=== PATIENT | female | born 1995 | race Caucasian/White ===

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

== ENCOUNTER 2017-01-24 22:08 | Emergency (ER) ==
[2017-01-24 22:14] VITALS: BP 136/73; TEMP 98.4; BMI 18.1
[2017-01-24] MEDS ORDERED: TORADOL IM STA (22:24)
--- NOTE | 2017-01-24 22:27 | ED.PDOC ---
General ED Provider: Dr. RUBY GARCIA Chief Complaint: Abdominal Pain Stated Complaint: Been hurting in the left flank area, has h/o kidney stones in the past, never hurt like this before. Time Seen by Physician: 22:24 Mode of Arrival: Walk-In Information Source: Patient, Family Primary Care Provider: JONELLE JUNIOR Nursing and Triage Documentation Reviewed and Agree: Yes GI Complaint Exam - Abdominal Pain Complaint/Exam Onset: Gradual Symptoms Are: Still present Timing: Constant Initial Severity: Moderate Current Severity: Severe Location of Pain: LLQ Radiates To: Reports: Flank Character: Reports: Dull, Aching Aggravating: Reports: Movement, Deep breaths Alleviating: Reports: None Associated Signs and Symptoms: Reports: Dysuria, Urinary frequency. Denies: Diaphoresis, Fever, Cough, Chest pain, Dizziness, Back pain, Constipation, Blood in stool, Decreased urine output, Decreased appetite, Vaginal bleeding, Vaginal discharge, Nausea, Vomiting, Diarrhea, Sore throat, Decreased activity Related History: Reports: Similar episode Ectopic Risk Factors: Reports: None Ovarian Torsion Risk Factors: Reports: None Surgical Obstruction Risk Factors: Reports: None Related Surgical History: Reports: None Abdominal Findings: Absent: Pulsatile mass, Abdominal distention, Unequal femoral pulses Differential Diagnoses: Renal Colic, Ovarian Cyst Review of Systems - Review Of Systems Constitutional: Reports: No symptoms Eyes: Reports: No symptoms Ears, Nose, Mouth, Throat: Reports: No symptoms Respiratory: Reports: No symptoms Cardiac: Reports: No symptoms GI: Reports: Abdominal pain : Reports: No symptoms Musculoskeletal: Reports: No symptoms Skin: Reports: No symptoms Neurological: Reports: No symptoms Endocrine: Reports: No symptoms Hematologic/Lymphatic: Reports: No symptoms All Other Systems: Reviewed and Negative Past Medical History - Past Medical History Previously Healthy: Yes Endocrine: Reports: None Cardiovascular: Reports: None Respiratory: Reports: None Hematological: Reports: None Gastrointestinal: Reports: None Genitourinary: Reports: None Neuro/Psych: Reports: None Musculoskeletal: Reports: None Cancer: Reports: None Last Menstrual Period: 2 weeks ago - Surgical History General Surgical History: Reports: None, Other - Family History Family History: Reports: Unknown - Social History Smoking Status: Never smoker Hx Substance Use: No Alcohol Screening: None - Immunizations Tetanus Shot up to Date: Yes Physical Exam - Physical Exam Appearance: Ill-appearing, Thin Eyes: JANINE, EOMI, Conjunctiva clear ENT: Ears normal, Nose normal, Oropharynx normal Respiratory: Airway patent, Breath sounds clear, Breath sounds equal, Respirations nonlabored Cardiovascular: RRR, Pulses normal, No rub, No murmur GI/: Tender Musculoskeletal: Normal strength, ROM intact, No edema, No calf tenderness Skin: Warm, Dry, Normal color Neurological: Sensation intact, Motor intact, Reflexes intact, Cranial nerves intact, Alert, Oriented Psychiatric: Affect appropriate, Mood appropriate Interpretation - Radiology Interpretation Radiology Interpretation By: Radiologist Radiology Results: Positive Exam Interpreted: CT Scan Critical Care Note - Critical Care Note Total Time (mins): 0 Course - Course Orders, Labs, Meds: Lab Review 01/24/17 01/24/17 22:26 22:28 Urine Color Yellow Urine Clarity Cloudy Urine pH 6.0 Ur Specific [place] 1.020 Urine Protein Trace Urine Glucose (UA) Negative Urine Ketones 1+ Urine Blood 3+ Urine Nitrite Negative Urine Bilirubin Negative Urine Urobilinogen 0.2 Ur Leukocyte Esterase Negative Urine Microscopic RBC 50-100 Ur Squamous Epith Cells 0-2 Urine Test Negative Orders Category Date Time Status URINALYSIS C & S IF INDICATED Stat LAB 01/24/17 22:28 Completed URINE Stat LAB 01/24/17 22:26 Completed Ketorolac Tromethamine [Toradol] MEDS 01/24/17 22:24 Discontinued 60 mg IM ONCE STA CT ABDOMEN/PELVIS WO CONTRAST Stat RADS 01/24/17 22:23 Completed Medications Discontinued Medications Generic Name Dose Route Start Last Admin Trade Name Freq PRN Reason Stop Dose Admin Ketorolac Tromethamine 60 mg 01/24/17 22:24 01/24/17 22:35 Toradol IM 01/24/17 22:25 60 mg ONCE STA Administration Vital Signs: Temp Pulse Resp BP Pulse Ox 01/24/17 22:08 98.4 F 119 H 22 136/73 97 Departure - Departure Time of Disposition: 23:28 Disposition: HOME SELF-CARE Discharge Problem: Renal colic on left side Instructions: Renal Colic (ED) Condition: Stable Pt referred to PMD for follow-up: Yes Additional Instructions: INCREASE HYDRATION F/U WITH [facility] IN 1-2 DAYS Prescriptions: Hydrocodone/Acetaminophen [[place] 5-325 Tablet] 1 tab PO TID PRN #12 tablet PRN Reason: PAIN Tamsulosin HCl [Flomax] 0.4 mg PO DAILY #10 cap.er.24h Allergies/Adverse Reactions: Allergies No Known Allergies Allergy (Unverified 01/24/17 22:14) Home Medications: Ambulatory Orders Doxycycline Monohydrate 100 mg PO BID 06/13/16 Hydrocodone/Acetaminophen [[place] 5-325 Tablet] 1 tab PO TID PRN #12 tablet 01/24 Tamsulosin HCl [Flomax] 0.4 mg PO DAILY #10 cap.er.24h 01/24/17 Disposition Discussed With: Patient, Family
[2017-01-24 22:31] LABS: BILIRUBIN,URINE Negative (NEGATIVE); KETONES,URINE 1+ (NEGATIVE); LEUKOCYTE ESTERASE ,URINE Negative (NEGATIVE); NITRITE,URINE Negative (NEGATIVE); PROTEIN,URINE Trace (NEGATIVE); URINE, BLOOD 3+ (NEGATIVE)
[2017-01-24 22:37] LABS: URINE PREGNANCY INTERNAL QC INTERNAL QC VALID
[2017-01-24 22:37] LABS: ADD URINE MICROSCOPIC YES
--- NOTE | 2017-01-24 23:14 | CT ---
EXAM: CT scan abdomen pelvis without contrast HISTORY: Flank pain COMPARISON: None. FINDINGS: . Contiguous axial images were obtained from lung bases to the symphysis pubis without co ntrast utilizing 3-mm collimation. Sagittal and coronal reconstructions were imaged and reviewed.. T he visualized lung bases are clear. The gallbladder is fluid filled without cholelithiasis. The shital er, pancreas, spleen and adrenal glands have normal unenhanced CT appearance. There are several punct ate nonobstructive calculi within the right kidney. There is a punctate calculus within the lower po le left kidney. There is mild left-sided hydronephrosis and hydroureter secondary to a 2 mm distal l eft ureteral calculus. No free fluid. Bone windows reveals no evidence of lytic or blastic lesions. IMPRESSION: Nonobstructive bilateral nephrolithiasis. Mild left-sided hydronephrosis and hydroureter secondary to a 2 mm distal left ureteral calculus.
[2017-01-24] MEDS ORDERED: FLOMAX PO STA (23:27)
[2017-01-24] MEDS ORDERED: NORCO 5-325 PO STA (23:43)
== END 2017-01-25 00:05 | disposition home or self-care (01) ==
LOC: ED 22:08
DX: N23 Unspecified renal colic (principal); Z87.442 Personal history of urinary calculi
CPT/HCPCS: 81001; 81025; 96372; 99283

== ENCOUNTER 2017-04-10 06:28 | Emergency (ER) ==
[2017-04-10 06:28] VITALS: BMI 18.1
[2017-04-10 06:32] VITALS: BP 131/84; TEMP 97.6
[2017-04-10] MEDS ORDERED: TORADOL IVP STA (06:41)
[2017-04-10] MEDS ORDERED: SODIUM CHLORIDE 1,000 ML IV STA (06:41)
[2017-04-10] MEDS ORDERED: MORPHINE 2 MG/ML SYRINGE IVP STA (06:41)
[2017-04-10] MEDS ORDERED: ZOFRAN 4 MG/2 ML IVP STA (06:41)
--- NOTE | 2017-04-10 06:47 | ED.PDOC ---
General Stated Complaint: i have a kidney stone Time Seen by Physician: 06:35 Mode of Arrival: Walk-In Information Source: Patient Exam Limitations: No limitations Nursing and Triage Documentation Reviewed and Agree: Yes <OGVANCESOFIYA - Last Filed: 04/10/17 06:44> <JANA ROQUE - Last Filed: 04/10/17 07:53> ED Provider: Dr. JANA ROQUE Chief Complaint: Kidney Stone Primary Care Provider: JONELLE JUNIOR Complaint Exam - Complaint/Exam Patient Complains of: Reports: Pain Symptoms Are: Still present Timing: Constant Initial Severity: Mild Current Severity: Moderate Location of Pain: Reports: Left, Flank Character: Reports: Sharp, Colicky, Dull Aggravating: Reports: None Alleviating: Reports: None Associated Signs and Symptoms: Reports: Back pain, Nausea, Vomiting. Denies: Diaphoresis, Fever, Hematuria, Dysuria, Constipation, Blood in stool, Rectal pain, Appetite change Ovarian Torsion Risk Factors: Reports: Reproductive age Surgical Obstruction Risk Factors: Reports: None RH Status: Unknown Abdominal Findings: Present: None Differential Diagnoses: Ovarian Cyst, Renal Colic, Ureteral Stone <RAOULKAMILASOFIYA Last Filed: 04/10/17 06:44> Review of Systems - Review Of Systems Constitutional: Reports: No symptoms Eyes: Reports: No symptoms Ears, Nose, Mouth, Throat: Reports: No symptoms Respiratory: Reports: No symptoms Cardiac: Reports: No symptoms GI: Reports: Nausea : Reports: Flank pain, Pain Musculoskeletal: Reports: No symptoms Skin: Reports: No symptoms Neurological: Reports: No symptoms Endocrine: Reports: No symptoms Hematologic/Lymphatic: Reports: No symptoms All Other Systems: Reviewed and Negative <RAOULKAMILASOFIYA Last Filed: 04/10/17 06:44> Past Medical History - Past Medical History Previously Healthy: Yes Endocrine: Reports: None Cardiovascular: Reports: None Respiratory: Reports: None Hematological: Reports: None Gastrointestinal: Reports: None Genitourinary: Reports: None Neuro/Psych: Reports: None Musculoskeletal: Reports: None Cancer: Reports: None Last Menstrual Period: 3 DAYS AGO - Surgical History General Surgical History: Reports: None, Other - Family History Family History: Reports: Unknown - Social History Smoking Status: Never smoker Hx Substance Use: No Alcohol Screening: None Lives: With family - Immunizations Tetanus Shot up to Date: Yes <SOFIYA VERGARA - Last Filed: 04/10/17 06:44> Physical Exam - Physical Exam Appearance: Well-appearing, No pain distress, Well-nourished Pain Distress: Moderate Eyes: JANINE, EOMI, Conjunctiva clear ENT: Ears normal, Nose normal, Oropharynx normal Neck: Supple Respiratory: Airway patent, Breath sounds clear, Breath sounds equal, Respirations nonlabored Cardiovascular: RRR, Pulses normal, No rub, No murmur GI/: Soft, Nontender, No masses, Bowel sounds normal, No Organomegaly Musculoskeletal: Normal strength, ROM intact, No edema, No calf tenderness Skin: Warm, Dry, Normal color Neurological: Sensation intact, Motor intact, Reflexes intact, Cranial nerves intact, Alert, Oriented Psychiatric: Affect appropriate, Mood appropriate <RAOULKAMILASOFIYA - Last Filed: 04/10/17 06:44> Re-Evaluation - Re-Evaluation Time of Re-Evaluation: 08:00 (STONE DISCUSSED CT REPORT DISCUSSED ) Status: Improved Vital Signs Stable: Yes Pain Level: 0 Appearance: NAD Lungs: Clear Skin: Warm and Dry Neuro: Alert and Oriented X3 CV: RRR <JANA ROQUE - Last Filed: 04/10/17 07:53> Physician Notification - Case Discussed Physician Notified: dr roque--7 am <URSULASOFIYA - Last Filed: 04/10/17 06:44> Critical Care Note - Critical Care Note Total Time (mins): 0 <JANA ROQUE - Last Filed: 04/10/17 07:53> Course - Course Hematology/Chemistry: 04/10/17 06:55 04/10/17 06:55 <JNAA ROQUE - Last Filed: 04/10/17 07:53> - Course Orders, Labs, Meds: Lab Review 04/10/17 04/10/17 04/10/17 06:40 06:40 06:55 WBC 6.22 RBC 4.06 L Hgb 12.7 Hct 36.1 L MCV 88.9 MCH 31.3 H MCHC 35.2 RDW Coeff of Pauline 13.2 Plt Count 242 Immature Gran % (Auto) 0.2 Neut % (Auto) 41.7 Lymph % (Auto) 51.0 H [place] % (Auto) 6.1 Eos % (Auto) 0.5 Baso % (Auto) 0.5 Immature Gran # (Auto) 0.0 Neut # 2.6 Lymph # 3.2 [place] # 0.4 Eos # 0.0 Baso # 0.0 Sodium Potassium Chloride Carbon Dioxide Anion Gap BUN Creatinine Estimated GFR (MDRD) BUN/Creatinine Ratio Glucose Calcium Total Bilirubin AST ALT Alkaline Phosphatase Total Protein Albumin Globulin Albumin/Globulin Ratio Amylase Lipase Urine Color Yellow Urine Clarity Clear Urine pH 5.5 Ur Specific [place] 1.025 Urine Protein 1+ Urine Glucose (UA) Negative Urine Ketones Negative Urine Blood 2+ Urine Nitrite Negative Urine Bilirubin Negative Urine Urobilinogen 0.2 Ur Leukocyte Esterase Negative Urine Microscopic RBC 10-20 Urine Microscopic WBC 2-5 Ur Squamous Epith Cells Not present Urine Bacteria Trace Urine Mucus 1+ Urine Test Negative 04/10/17 06:55 WBC RBC Hgb Hct MCV MCH MCHC RDW Coeff of Pauline Plt Count Immature Gran % (Auto) Neut % (Auto) Lymph % (Auto) [place] % (Auto) Eos % (Auto) Baso % (Auto) Immature Gran # (Auto) Neut # Lymph # [place] # Eos # Baso # Sodium 142 Potassium 3.4 L Chloride 109 H Carbon Dioxide 21 Anion Gap 15.4 BUN 10 Creatinine 0.69 Estimated GFR (MDRD) 110.00 BUN/Creatinine Ratio 14.49 Glucose 109 Calcium 9.2 Total Bilirubin 0.56 L AST 17 ALT 12 Alkaline Phosphatase 49 Total Protein 6.8 Albumin 4.0 Globulin 2.8 Albumin/Globulin Ratio 1.43 Amylase 53 Lipase 18 Urine Color Urine Clarity Urine pH Ur Specific [place] Urine Protein Urine Glucose (UA) Urine Ketones Urine Blood Urine Nitrite Urine Bilirubin Urine Urobilinogen Ur Leukocyte Esterase Urine Microscopic RBC Urine Microscopic WBC Ur Squamous Epith Cells Urine Bacteria Urine Mucus Urine Test Orders Category Date Time Status ED IV/MEDIPORT/POWERPORT .ONCE EMERGENCY 04/10/17 06:41 Active AMYLASE Stat LAB 04/10/17 06:55 Completed CBC W/ AUTO DIFF Stat LAB 04/10/17 06:55 Completed COMPREHENSIVE METABOLIC PANEL Stat LAB 04/10/17 06:55 Completed LIPASE Stat LAB 04/10/17 06:55 Completed URINALYSIS C & S IF INDICATED Stat LAB 04/10/17 06:40 Completed URINE Stat LAB 04/10/17 06:40 Completed 0.9 % Sodium Chloride [Saline Flush] MEDS 04/10/17 06:41 Active 1 syr IVF PRN PRN Ketorolac Tromethamine [Toradol] MEDS 04/10/17 06:41 Discontinued 30 mg IVP ONCE STA Morphine Sulfate [Morphine 2 mg/ml Syringe] MEDS 04/10/17 06:41 Discontinued 2 mg IVP ONCE STA Ondansetron HCl/Pf [Zofran 4 mg/2 ml] MEDS 04/10/17 06:41 Discontinued 4 mg IVP ONCE STA Sodium Chloride 0.9% [Sodium Chloride] 1,000 ml MEDS 04/10/17 06:41 Active IV 100 mls/hr CT ABDOMEN/PELVIS WO CONTRAST Stat RADS 04/10/17 06:41 Completed Medications Generic Name Dose Route Start Last Admin Trade Name Freq PRN Reason Stop Dose Admin Sodium Chloride 1,000 mls @ 100 mls/hr 04/10/17 06:41 04/10/17 06:57 Sodium Chloride IV 04/10/17 16:40 100 mls/hr .Q10H STA Administration Sodium Chloride 1 syr 04/10/17 06:41 04/10/17 06:56 Saline Flush IVF 1 syr PRN PRN Administration To flush IV Discontinued Medications Generic Name Dose Route Start Last Admin Trade Name Freq PRN Reason Stop Dose Admin Ketorolac Tromethamine 30 mg 04/10/17 06:41 04/10/17 06:57 Toradol IVP 04/10/17 06:42 30 mg ONCE STA Administration Morphine Sulfate 2 mg 04/10/17 06:41 04/10/17 06:56 Morphine 2 Mg/Ml Syringe IVP 04/10/17 06:42 2 mg ONCE STA Administration Ondansetron HCl 4 mg 04/10/17 06:41 04/10/17 06:57 Zofran 4 Mg/2 Ml IVP 04/10/17 06:42 4 mg ONCE STA Administration Vital Signs: Temp Pulse Resp BP Pulse Ox 04/10/17 06:30 97.6 F 107 H 22 131/84 99 Departure <SOFIYA VERGARA - Last Filed: 04/10/17 06:44> - Departure Time of Disposition: 07:52 (SURAJ ON 7 AM ) Pt referred to PMD for follow-up: Yes <JANA ROQUE - Last Filed: 04/10/17 07:53> - Departure Disposition: HOME SELF-CARE Discharge Problem: Kidney stone Instructions: Kidney Stones (ED), Renal Colic (ED), Flank Pain (ED) Condition: Good Additional Instructions: Please call your Family Physician as soon as possible to schedule a follow-up appointment. Allergies/Adverse Reactions: Allergies No Known Allergies Allergy (Unverified 01/26/17 14:01) Home Medications: Ambulatory Orders Doxycycline Monohydrate 100 mg PO BID 06/13/16 Norethindrone [Ortho Micronor] 0.35 mg PO DAILY tab-cap 01/26/17
[2017-04-10 06:49] LABS: BILIRUBIN,URINE Negative (NEGATIVE); KETONES,URINE Negative (NEGATIVE); LEUKOCYTE ESTERASE ,URINE Negative (NEGATIVE); NITRITE,URINE Negative (NEGATIVE); PH,URINE 5.5 (5-9); PROTEIN,URINE 1+ (NEGATIVE); URINE, BLOOD 2+ (NEGATIVE)
[2017-04-10 06:51] LABS: URINE PREGNANCY INTERNAL QC INTERNAL QC VALID
[2017-04-10 06:52] LABS: ADD URINE MICROSCOPIC YES
[2017-04-10 06:59] LABS: BACTERIA,URINE TRACE (NOT PRESENT)
[2017-04-10 07:02] LABS: BASOPHILS % (AUTO) 0.5 % (0.0-3.0); EOSINOPHILS % (AUTO) 0.5 % (0.0-7.0); HEMATOCRIT 36.1 % (37.0-47.0); HEMOGLOBIN 12.7 g/dl (12.0-16.0); IMMATURE GRANULOCYTE % (AUTO) 0.2 % (0.0-5.0); LYMPHOCYTES # (AUTO) 3.2 K/uL (0.60-3.4); MEAN CORPUSCULAR HEMOGLOBIN 31.3 pg (27.0-31.0); MEAN CORPUSCULAR HGB CONC 35.2 (31.8-35.4); MEAN CORPUSCULAR VOLUME 88.9 fl (81.0-99.0); MONOCYTES # (AUTO) 0.4 K/uL (0.4-2.0); MONOCYTES % (AUTO) 6.1 (0-10); NEUTROPHILS # (AUTO) 2.6 K/ul (2.0-6.9); NEUTROPHILS % (AUTO) 41.7; PLATELET COUNT 242 10^3/uL (140-440); RED BLOOD COUNT 4.06 10^6/ul (4.20-5.40); WHITE BLOOD COUNT 6.22 K/ul (4.6-10.2)
[2017-04-10 07:21] LABS: ALBUMIN/GLOBULIN RATIO 1.43; ANION GAP 15.4; BILIRUBIN,TOTAL 0.56 mg/dL (0.60-1.40); BUN/CREATININE RATIO 14.49; CALCIUM 9.2 mg/dL (8.2-10.2); CREATININE 0.69 mg/dL (0.60-1.30); POTASSIUM 3.4 mmol/L (3.5-5.10); TOTAL PROTEIN 6.8 g/dL (6.4-8.2)
--- NOTE | 2017-04-10 07:36 | CT ---
EXAM: CT Abdomen without contrast. CT Pelvis without contrast. HISTORY: Right flank pain. COMPARISON: 01/24/2017. TECHNIQUE: Multiple axial images of the abdomen and pelvis were obtained without intravenous contras t. Images were reformatted in the coronal plane. FINDINGS: Please note that evaluation of the abdominal and pelvic structures is limited due to lack of intravenous contrast. The lung bases are clear. No acute osseous abnormality identified. The liver, gallbladder, pancreas, spleen, and adrenal glands demonstrate normal contour. Mild left h ydronephrosis noted with a 0.3 cm obstructing calculus near the left ureteral vesicle junction on axi al image 117. Punctate nonobstructing right renal calculi are present. There is no right hydronephr osis. The bowel is normal in course and caliber without evidence for obstruction or inflammatory process. The appendix is normal. Uterus demonstrates normal contour. Bladder is not well distended. No free fluid or free air identified. IMPRESSION: 1. A 0.3 cm obstructing calculus near the left ureteral vesicle junction causing mild left hydroneph rosis. 2. Right nephrolithiasis.
== END 2017-04-10 09:30 | disposition home or self-care (01) ==
LOC: ED 06:28
DX: N20.0 Calculus of kidney (principal)
CPT/HCPCS: 36415; 80053; 81001; 81025; 82150; 83690; 85025; 96361; 96374; 96375; 99283

== ENCOUNTER 2017-04-11 09:36 | Emergency (ER) ==
[2017-04-11 09:42] VITALS: BP 117/68; TEMP 96.9; BMI 17.4
[2017-04-11] MEDS ORDERED: TORADOL IM STA (09:59)
[2017-04-11] MEDS ORDERED: ZOFRAN 4 MG/2 ML IM STA (09:59)
--- NOTE | 2017-04-11 10:01 | ED.PDOC ---
General ED Provider: Dr. JANA RUELAS Chief Complaint: Abdominal Pain Stated Complaint: left flank pain Time Seen by Physician: 09:45 Mode of Arrival: Walk-In Information Source: Patient Exam Limitations: No limitations Primary Care Provider: JONELLE JUNIOR Nursing and Triage Documentation Reviewed and Agree: Yes (seen with silvia) Review of Systems - Review Of Systems Constitutional: Reports: No symptoms Eyes: Reports: No symptoms Ears, Nose, Mouth, Throat: Reports: No symptoms Respiratory: Reports: No symptoms Cardiac: Reports: No symptoms GI: Reports: No symptoms : Reports: Flank pain Musculoskeletal: Reports: No symptoms Skin: Reports: No symptoms Neurological: Reports: No symptoms Endocrine: Reports: No symptoms Hematologic/Lymphatic: Reports: No symptoms All Other Systems: Reviewed and Negative Past Medical History - Past Medical History Previously Healthy: Yes Endocrine: Reports: None Cardiovascular: Reports: None Respiratory: Reports: None Hematological: Reports: None Gastrointestinal: Reports: None Genitourinary: Reports: None Neuro/Psych: Reports: None Musculoskeletal: Reports: None Cancer: Reports: None Last Menstrual Period: 4 days ago - Surgical History General Surgical History: Reports: None, Other - Family History Family History: Reports: Unknown - Social History Smoking Status: Never smoker Hx Substance Use: No Alcohol Screening: None Physical Exam - Physical Exam Appearance: Well-appearing, No pain distress, Well-nourished Eyes: JANINE, EOMI, Conjunctiva clear ENT: Ears normal, Nose normal, Oropharynx normal Respiratory: Airway patent, Breath sounds clear, Breath sounds equal, Respirations nonlabored Cardiovascular: RRR, Pulses normal, No rub, No murmur GI/: Soft, Nontender, No masses, Bowel sounds normal, No Organomegaly Musculoskeletal: Normal strength, ROM intact, No edema, No calf tenderness Skin: Warm, Dry, Normal color Neurological: Sensation intact, Motor intact, Reflexes intact, Cranial nerves intact, Alert, Oriented Psychiatric: Affect appropriate, Mood appropriate Critical Care Note - Critical Care Note Total Time (mins): 0 Course - Course Orders, Labs, Meds: Orders Category Date Time Status Ketorolac Tromethamine [Toradol] MEDS 04/11/17 09:59 Stat 30 mg IM ONCE STA Ondansetron HCl/Pf [Zofran 4 mg/2 ml] MEDS 04/11/17 09:59 Stat 4 mg IM ONCE STA Medications Discontinued Medications Generic Name Dose Route Start Last Admin Trade Name James PRN Reason Stop Dose Admin Ketorolac Tromethamine 30 mg 04/11/17 09:59 Toradol IM 04/11/17 10:00 ONCE STA Vital Signs: Temp Pulse Resp BP Pulse Ox 04/11/17 09:39 96.9 F L 107 H 20 117/68 98 Departure - Departure Time of Disposition: 10:00 Disposition: HOME SELF-CARE Discharge Problem: Kidney stone Instructions: Kidney Stones (ED) Condition: Good Pt referred to PMD for follow-up: Yes Additional Instructions: Please call your Family Physician as soon as possible to schedule a follow-up appointment. Allergies/Adverse Reactions: Allergies No Known Allergies Allergy (Verified 04/11/17 09:45) Home Medications: Ambulatory Orders Norethindrone [Ortho Micronor] 0.35 mg PO DAILY tab-cap 01/26/17 Hydrocodone/Acetaminophen [[place] 10-325 Tablet] 1 each PO Q8HR #14 tablet Tamsulosin HCl [Flomax] 0.4 mg PO DAILY #4 cap.er.24h 04/10/17
== END 2017-04-11 10:48 | disposition home or self-care (01) ==
LOC: ED 09:36
DX: N20.0 Calculus of kidney (principal)
CPT/HCPCS: 96372; 99283

== ENCOUNTER 2018-05-25 20:51 | Emergency (ER) ==
[2018-05-25 20:58] VITALS: BP 129/81; TEMP 98.6; BMI 17.0
[2018-05-25] MEDS ORDERED: ZOFRAN 4 MG/2 ML IVP STA (21:06)
[2018-05-25] MEDS ORDERED: SODIUM CHLORIDE 1,000 ML IV STA (21:06)
--- NOTE | 2018-05-25 22:01 | CT ---
EXAM: CT abdomen and pelvis without contrast HISTORY: Vomiting TECHNIQUE: Multi-slice transaxial helical with coronal and sagittal reformed images COMPARISON: CT abdomen/pelvis from 04/10/2017 FINDINGS: The lung bases are free of acute airspace or interstitial opacities. The heart size is nor mal. There are no pericardial or pleural effusions. The hepatic attenuation is normal relative to the spleen. Gallbladder is present without biliary dil atation. The pancreas and adrenal glands are normal. The spleen has normal size and attenuation. The kidneys and ureters are normal. The nonopacified bladder is empty. The uterus and adnexa are gr ossly normal. The intestines have normal caliber without evidence of obstruction. The appendix is not visualized. There are no secondary features of acute appendicitis. The aorta has normal caliber. No lymphadeno mavrin or ascites appreciated. The bones are free of suspicious osteolytic or osteoblastic lesions. IMPRESSION: 1. Nonobstructive intestinal gas pattern. 2. No lymphadenopathy or ascites. 3. Normal renal collecting systems. 4. No biliary dilatation.
--- NOTE | 2018-05-25 23:32 | ED.PDOC ---
General ED Provider: Dr. SOFIYA FOLEY-ER Chief Complaint: Nausea/Vomiting Stated Complaint: as above Time Seen by Physician: 20:55 Mode of Arrival: Walk-In Information Source: Patient Exam Limitations: Physical impairment Primary Care Provider: JONELLE LOPEZ Nursing and Triage Documentation Reviewed and Agree: Yes Does patient meet sepsis criteria?: No System Inflammatory Response Syndrome: Not Applicable Sepsis Protocol: For patient's 13 years and over: Temp is 96.8 and below OR 101 and greater Pulse >90 BPM Resp >20/minute Acutely Altered Mental Status Are patient's symptoms suggestive of a new infection, such as: -Pneumonia -Skin, Soft Tissue -Endocarditis -UTI -Bone, Joint Infection -Implantable Device -Acute Abdominal Infection -Wound Infection -Meningitis -Blood Stream Catheter Infection -Unknown GI Complaint Exam - Vomiting/Diarrhea Complaint/Exam Onset/Duration: 24 hrs Symptoms Are: Still present Initial Severity: Mild Current Severity: Mild Character of Vomiting: Reports: Non-bilious Aggravating: Reports: None Alleviating: Reports: None Associated Signs and Symptoms: Denies: Dizziness, Light-headedness, Melena, Hematemesis, Fever, Abdominal pain, Cramping Use of Oral Contraceptives: No Use of Depoprovera: No Compliant With Contraceptive Use: No Non-GI Risk Factors: Reports: None Surgical Obstruction Risk Factors: Reports: None Related Surgical History: Reports: None Abdominal Findings: Present: None Kussmaul Respirations Present: No Differential Diagnoses: Dehydration, Viral Gastroenteritis Review of Systems - Review Of Systems Constitutional: Reports: No symptoms Eyes: Reports: No symptoms Ears, Nose, Mouth, Throat: Reports: No symptoms Respiratory: Reports: No symptoms Cardiac: Reports: No symptoms GI: Reports: Diarrhea, Nausea, Vomiting : Reports: No symptoms Musculoskeletal: Reports: No symptoms Skin: Reports: No symptoms Neurological: Reports: No symptoms Endocrine: Reports: No symptoms Hematologic/Lymphatic: Reports: No symptoms All Other Systems: Reviewed and Negative Past Medical History - Past Medical History Previously Healthy: Yes Endocrine: Reports: None Cardiovascular: Reports: None Respiratory: Reports: None Hematological: Reports: None Gastrointestinal: Reports: None Genitourinary: Reports: None Neuro/Psych: Reports: None Musculoskeletal: Reports: None Cancer: Reports: None Last Menstrual Period: A FEW DAYS AGO - Surgical History General Surgical History: Reports: None, Other - Family History Family History: Reports: Unknown - Social History Smoking Status: Never smoker Hx Substance Use: No Alcohol Screening: Occasionally - Immunizations Tetanus Shot up to Date: Yes Physical Exam - Physical Exam Appearance: Well-appearing, No pain distress, Well-nourished Eyes: JANINE, EOMI, Conjunctiva clear ENT: Ears normal, Nose normal, Oropharynx normal Neck: Supple Respiratory: Airway patent, Breath sounds clear, Breath sounds equal, Respirations nonlabored Cardiovascular: RRR GI/: Soft, Nontender, No masses, Bowel sounds normal, No Organomegaly Musculoskeletal: Normal strength, ROM intact, No edema, No calf tenderness Skin: Warm, Dry, Normal color Neurological: Sensation intact Psychiatric: Affect appropriate, Mood appropriate Interpretation - Radiology Interpretation Radiology Interpretation By: Radiologist Radiology Results: Negative Exam Interpreted: CT Scan Critical Care Note - Critical Care Note Total Time (mins): 0 Course - Course Hematology/Chemistry: 05/25/18 21:18 05/25/18 21:18 Orders, Labs, Meds: Lab Review 05/25/18 05/25/18 05/25/18 21:05 21:18 21:18 WBC 12.65 H RBC 4.35 Hgb 13.2 Hct 39.2 MCV 90.1 MCH 30.3 MCHC 33.7 RDW Coeff of Pauline 12.8 Plt Count 292 Immature Gran % (Auto) 0.2 Neut % (Auto) 89.0 Lymph % (Auto) 8.1 L [place] % (Auto) 2.5 Eos % (Auto) 0.0 Baso % (Auto) 0.2 Immature Gran # (Auto) 0.0 Neut # (Auto) 11.3 H Lymph # (Auto) 1.0 [place] # (Auto) 0.3 L Eos # (Auto) 0.0 Baso # (Auto) 0.0 Sodium 144.7 Potassium 3.74 Chloride 102.3 Carbon Dioxide 22.4 Anion Gap 23.74 BUN 12.7 Creatinine 0.58 L Estimated GFR (MDRD) 133.00 BUN/Creatinine Ratio 21.89 Glucose 110.8 H Calcium 10.17 Total Bilirubin 0.84 AST 30.3 ALT 19.3 Alkaline Phosphatase 61.8 Total Protein 8.72 H Albumin 5.36 H Globulin 3.36 Albumin/Globulin Ratio 1.59 Amylase 74.8 Lipase 41.7 Serum , Qual Urine Color Yellow Urine Clarity Cloudy Urine pH 6.0 Ur Specific [place] >=1.030 Urine Protein 1+ Urine Glucose (UA) Negative Urine Ketones 4+ Urine Blood 2+ Urine Nitrite Negative Urine Bilirubin Negative Urine Urobilinogen 0.2 Ur Leukocyte Esterase Negative Urine Microscopic RBC 5-10 Urine Microscopic WBC 5-10 Ur Squamous Epith Cells 10-20 Urine Bacteria Trace Urine Mucus 1+ Influ A Molecular Assay Influ B Molecular Assay 05/25/18 05/25/18 21:18 22:36 WBC RBC Hgb Hct MCV MCH MCHC RDW Coeff of Pauline Plt Count Immature Gran % (Auto) Neut % (Auto) Lymph % (Auto) [place] % (Auto) Eos % (Auto) Baso % (Auto) Immature Gran # (Auto) Neut # (Auto) Lymph # (Auto) [place] # (Auto) Eos # (Auto) Baso # (Auto) Sodium Potassium Chloride Carbon Dioxide Anion Gap BUN Creatinine Estimated GFR (MDRD) BUN/Creatinine Ratio Glucose Calcium Total Bilirubin AST ALT Alkaline Phosphatase Total Protein Albumin Globulin Albumin/Globulin Ratio Amylase Lipase Serum , Qual Negative Urine Color Urine Clarity Urine pH Ur Specific [place] Urine Protein Urine Glucose (UA) Urine Ketones Urine Blood Urine Nitrite Urine Bilirubin Urine Urobilinogen Ur Leukocyte Esterase Urine Microscopic RBC Urine Microscopic WBC Ur Squamous Epith Cells Urine Bacteria Urine Mucus Influ A Molecular Assay Negative by naat Influ B Molecular Assay Negative by naat Orders Category Date Time Status IV [ED IV/MEDIPORT/POWERPORT] .ONCE EMERGENCY 05/25/18 21:05 Active AMYLASE Stat LAB 05/25/18 21:18 Completed CBC W/ AUTO DIFF Stat LAB 05/25/18 21:18 Completed COMPREHENSIVE METABOLIC PANEL Stat LAB 05/25/18 21:18 Completed FLU A/B MOLECULAR Stat LAB 05/25/18 22:36 Completed LIPASE Stat LAB 05/25/18 21:18 Completed MOLECULAR GROUP A STREP Stat LAB 05/25/18 22:36 Completed SERUM Stat LAB 05/25/18 21:18 Completed URINALYSIS C & S IF INDICATED Stat LAB 05/25/18 21:05 Completed URINE CULTURE Stat LAB 05/25/18 21:05 Received 0.9 % Sodium Chloride [Saline Flush] MEDS 05/25/18 21:05 Ordered 1 syr IVF PRN PRN Ondansetron HCl/Pf [Zofran 4 mg/2 ml] MEDS 05/25/18 21:06 Discontinued 4 mg IVP ONCE STA Sodium Chloride 0.9% [Sodium Chloride] 1,000 ml MEDS 05/25/18 21:[address] ABDOMEN/PELVIS WO CONTRAST Stat RADS 05/25/18 21:06 Completed Medications Generic Name Dose Route Start Last Admin Trade Name Freq PRN Reason Stop Dose Admin Sodium Chloride 1 syr 05/25/18 21:05 Saline Flush IVF PRN PRN To flush IV Discontinued Medications Generic Name Dose Route Start Last Admin Trade Name Freq PRN Reason Stop Dose Admin Sodium Chloride 1,000 mls @ 1,000 mls/hr 05/25/18 21:06 05/25/18 21:23 Sodium Chloride IV 05/25/18 22:05 1,000 mls/hr BOLUS STA Administration Ondansetron HCl 4 mg 05/25/18 21:06 05/25/18 21:23 Zofran 4 Mg/2 Ml IVP 05/25/18 21:07 4 mg ONCE STA Administration Vital Signs: Temp Pulse Resp BP Pulse Ox 05/25/18 20:51 98.6 F 107 H 18 129/81 98 Departure - Departure Time of Disposition: 23:32 Disposition: HOME SELF-CARE Discharge Problem: Enteritis Instructions: Enteritis (ED) Condition: Good Pt referred to PMD for follow-up: Yes IPMP verified?: No Additional Instructions: zofran 4mg q 4hrs prn #5--f/u prn Allergies/Adverse Reactions: Allergies No Known Allergies Allergy (Verified 05/25/18 20:58) Home Medications: Ambulatory Orders Norethindrone [Ortho Micronor] 0.35 mg PO DAILY tab-cap 01/26/17 Doxycycline Monohydrate 100 mg PO DAILY 05/25/18 Disposition Discussed With: Patient, Family
== END 2018-05-25 23:40 | disposition home or self-care (01) ==
LOC: ED 20:51
DX: K52.9 Noninfective gastroenteritis and colitis, unspecified (principal)
CPT/HCPCS: 36415; 80053; 81001; 82150; 83690; 84703; 85025; 87086; 87502; 87651; 96361; 96374; 96375; 99283

== ENCOUNTER 2018-08-19 02:30 | Emergency (ER) ==
[2018-08-19 02:38] VITALS: BP 132/85; TEMP 98.4; BMI 16.8
--- NOTE | 2018-08-19 03:05 | ED.PDOC ---
General ED Provider: Dr. SHARI NICOLAS Chief Complaint: Nausea/Vomiting Stated Complaint: 22 y old female here stating laurajat she started feeling sick at about 5 pm. Abdomen is normal to auscultation and palpation.Bowel sounds are present,Patient states that she had a normal BM just before coming in. Because she did not actualy vomit or even retch during the exam I asked herto describe it,She stated that it miht be green or clear every 3o min or so. Time Seen by Physician: 03:12 Mode of Arrival: Walk-In Information Source: Patient Exam Limitations: No limitations Primary Care Provider: JONELLE LOPEZ Nursing and Triage Documentation Reviewed and Agree: Yes Does patient meet sepsis criteria?: No System Inflammatory Response Syndrome: Not Applicable Sepsis Protocol: For patient's 13 years and over: Temp is 96.8 and below OR 101 and greater Pulse >90 BPM Resp >20/minute Acutely Altered Mental Status Are patient's symptoms suggestive of a new infection, such as: -Pneumonia -Skin, Soft Tissue -Endocarditis -UTI -Bone, Joint Infection -Implantable Device -Acute Abdominal Infection -Wound Infection -Meningitis -Blood Stream Catheter Infection -Unknown GI Complaint Exam - Vomiting/Diarrhea Complaint/Exam Onset/Duration: at 5 pm Symptoms Are: Still present Episodes of Vomiting over last 24 Hours: 10 (pt states every 30 min,none so far in ER) Episodes of Diarrhea Over Last 24 Hours: 0 Initial Severity: Mild Current Severity: Mild Character of Vomiting: Reports: Non-bilious, Retching Aggravating: Reports: None Alleviating: Reports: None Last Oral Intake: yesterday Last Bowel Movement: before coming in : 0 Para: 0 Hx Total # of Abortions (Spontaneous & Elective): 0 Menses: Regular Recent Positive Test: No Use of Oral Contraceptives: No Use of Depoprovera: No Non-GI Risk Factors: Reports: None Surgical Obstruction Risk Factors: Reports: None Related Surgical History: Reports: None Abdominal Findings: Present: None Rectal Exam: Present: Other Kussmaul Respirations Present: No Differential Diagnoses: Dehydration, Viral Gastroenteritis, , UTI Review of Systems - Review Of Systems Constitutional: Reports: No symptoms Eyes: Reports: No symptoms Ears, Nose, Mouth, Throat: Reports: No symptoms Respiratory: Reports: No symptoms Cardiac: Reports: No symptoms GI: Reports: Nausea : Reports: No symptoms Musculoskeletal: Reports: No symptoms Skin: Reports: No symptoms Neurological: Reports: No symptoms Endocrine: Reports: No symptoms Hematologic/Lymphatic: Reports: No symptoms All Other Systems: Reviewed and Negative Past Medical History - Past Medical History Previously Healthy: Yes Endocrine: Reports: None Cardiovascular: Reports: None Respiratory: Reports: None Hematological: Reports: None Gastrointestinal: Reports: None Genitourinary: Reports: None Neuro/Psych: Reports: None Musculoskeletal: Reports: None Cancer: Reports: None Last Menstrual Period: 08/15/18 - Surgical History General Surgical History: Reports: None, Other - Family History Family History: Reports: Unknown - Social History Smoking Status: Never smoker Hx Substance Use: No Alcohol Screening: None - Immunizations Tetanus Shot up to Date: Yes Physical Exam - Physical Exam Appearance: Well-appearing Ill-appearing: None Pain Distress: None Eyes: JANINE ENT: Ears normal Neck: Supple Respiratory: Airway patent Cardiovascular: Tachycardia GI/: Soft, Nontender, No masses, Bowel sounds normal Musculoskeletal: Normal strength, ROM intact, No edema Skin: Warm, Dry Neurological: Sensation intact, Motor intact, Reflexes intact Psychiatric: Anxious Critical Care Note - Critical Care Note Total Time (mins): 0 Course - Course Hematology/Chemistry: 08/19/18 03:55 08/19/18 03:55 Orders, Labs, Meds: Lab Review 08/19/18 08/19/18 08/19/18 02:45 02:45 03:55 WBC 12.19 H RBC 4.28 Hgb 13.0 Hct 38.7 MCV 90.4 MCH 30.4 MCHC 33.6 RDW Coeff of Pauline 12.3 Plt Count 296 Immature Gran % (Auto) 0.3 Neut % (Auto) 87.4 Lymph % (Auto) 8.7 L [place] % (Auto) 3.4 Eos % (Auto) 0.0 Baso % (Auto) 0.2 Immature Gran # (Auto) 0.0 Neut # (Auto) 10.6 H Lymph # (Auto) 1.1 [place] # (Auto) 0.4 Eos # (Auto) 0.0 Baso # (Auto) 0.0 Sodium Potassium Chloride Carbon Dioxide Anion Gap BUN Creatinine Estimated GFR (MDRD) BUN/Creatinine Ratio Glucose Lactic Acid Calcium Total Bilirubin AST ALT Alkaline Phosphatase Total Protein Albumin Globulin Albumin/Globulin Ratio Amylase Lipase Urine Color Yellow Urine Clarity Cloudy Urine pH 8.0 Ur Specific [place] 1.020 Urine Protein 1+ Urine Glucose (UA) Negative Urine Ketones 2+ Urine Blood Trace-intact Urine Nitrite Negative Urine Bilirubin Negative Urine Urobilinogen 0.2 Ur Leukocyte Esterase Negative Urine Microscopic RBC 2-5 Urine Microscopic WBC 5-10 Ur Squamous Epith Cells 10-20 Amorphous Sediment 1+ Urine Bacteria Trace Urine Mucus 1+ Urine Test Negative 08/19/18 08/19/18 03:55 03:55 WBC RBC Hgb Hct MCV MCH MCHC RDW Coeff of Pauline Plt Count Immature Gran % (Auto) Neut % (Auto) Lymph % (Auto) [place] % (Auto) Eos % (Auto) Baso % (Auto) Immature Gran # (Auto) Neut # (Auto) Lymph # (Auto) [place] # (Auto) Eos # (Auto) Baso # (Auto) Sodium 138.5 Potassium 4.00 Chloride 101.1 Carbon Dioxide 25.1 Anion Gap 16.30 BUN 10.9 Creatinine 0.47 L Estimated GFR (MDRD) 169.00 BUN/Creatinine Ratio 23.19 Glucose 114.3 H Lactic Acid 2.12 H Calcium 9.84 Total Bilirubin 0.61 AST 36.3 H ALT 17.5 Alkaline Phosphatase 61.9 Total Protein 7.84 Albumin 5.32 H Globulin 2.52 Albumin/Globulin Ratio 2.11 Amylase 78.9 Lipase 100.9 Urine Color Urine Clarity Urine pH Ur Specific [place] Urine Protein Urine Glucose (UA) Urine Ketones Urine Blood Urine Nitrite Urine Bilirubin Urine Urobilinogen Ur Leukocyte Esterase Urine Microscopic RBC Urine Microscopic WBC Ur Squamous Epith Cells Amorphous Sediment Urine Bacteria Urine Mucus Urine Test Orders Category Date Time Status IV [ED IV/MEDIPORT/POWERPORT] .ONCE EMERGENCY 08/19/18 04:14 Active AMYLASE Stat LAB 08/19/18 03:55 Completed CBC W/ AUTO DIFF Stat LAB 08/19/18 03:55 Completed COMPREHENSIVE METABOLIC PANEL Stat LAB 08/19/18 03:55 Completed LACTIC ACID Stat LAB 08/19/18 03:55 Completed LIPASE Stat LAB 08/19/18 03:55 Completed URINALYSIS C & S IF INDICATED Stat LAB 08/19/18 02:45 Completed URINE CULTURE Stat LAB 08/19/18 02:45 Received URINE Stat LAB 08/19/18 02:45 Completed 0.9 % Sodium Chloride [Saline Flush] MEDS 08/19/18 04:14 Ordered 1 syr IVF PRN PRN Ceftriaxone Sodium [Rocephin] MEDS 08/19/18 04:20 Discontinued 500 mg .ROUTE .STK-MED ONE Ceftriaxone Sodium [Rocephin] 500 mg MEDS 08/19/18 04:18 Discontinued 0.9 % Sodium Chloride [Sodium Chloride] 50 ml IV ONCE Ondansetron HCl/Pf [Zofran 4 mg/2 ml] MEDS 08/19/18 04:17 Discontinued 4 mg IVP ONCE STA Sodium Chloride 0.9% [Sodium Chloride] 1,000 ml MEDS 08/19/18 04:[address] ABDOMEN/PELVIS WO CONTRAST Stat RADS 08/19/18 03:26 Completed Medications Generic Name Dose Route Start Last Admin Trade Name Freq PRN Reason Stop Dose Admin Sodium Chloride 1 syr 08/19/18 04:14 08/19/18 04:28 Saline Flush IVF 1 syr PRN PRN Administration To flush IV Discontinued Medications Generic Name Dose Route Start Last Admin Trade Name Freq PRN Reason Stop Dose Admin Sodium Chloride 1,000 mls @ 1,000 mls/hr 08/19/18 04:15 08/19/18 04:29 Sodium Chloride IV 08/19/18 05:14 1,000 mls/hr BOLUS STA Administration Ceftriaxone Sodium 500 mg/ 50 mls @ 75 mls/hr 08/19/18 04:18 08/19/18 04:33 Sodium Chloride IV 08/19/18 04:57 75 mls/hr ONCE STA Administration Ondansetron HCl 4 mg 08/19/18 04:17 08/19/18 04:28 Zofran 4 Mg/2 Ml IVP 08/19/18 04:18 4 mg ONCE STA Administration Vital Signs: Temp Pulse Resp BP Pulse Ox 08/19/18 02:30 98.4 F 124 H 18 132/85 98 Departure - Departure Time of Disposition: 05:42 Disposition: HOME SELF-CARE Discharge Problem: UTI (urinary tract infection) Instructions: Acute Nausea and Vomiting (ED) Condition: Good Pt referred to PMD for follow-up: Yes (follow with PCP of choice,complete Bactrim taking) IPMP verified?: No Additional Instructions: Bactrim DS bidx 10 days #20,Zofran tab a 4 mg as directed prn #12 tabs. 1 tab q 6-8 hours prn Allergies/Adverse Reactions: Allergies No Known Allergies Allergy (Verified 08/19/18 02:38) Home Medications: Ambulatory Orders Norethindrone [Ortho Micronor] 0.35 mg PO DAILY tab-cap 01/26/17 Doxycycline Monohydrate 100 mg PO DAILY 05/25/18 Omeprazole 20 mg PO TIDAC PRN 08/19/18 Sucralfate [Carafate] 1 gm PO ACHS PRN 08/19/18 Disposition Discussed With: Patient, Family
[2018-08-19 03:35] LABS: URINE PREGNANCY TEST NEGATIVE (NEGATIVE)
--- NOTE | 2018-08-19 04:08 | CT ---
EXAM: CT abdomen pelvis without intravenous contrast 08/19/2018. Sagittal and coronal reformatted i mages obtained HISTORY: Nausea vomiting COMPARISON: 01/23/2019 FINDINGS: The liver, gallbladder, adrenal glands and kidneys show no acute abnormality. The spleen and pancreas show no acute process. There is no bowel obstruction. The appendix is not identified. Unremarkable urinary bladder. No free air or free fluid. No acute osseous abnormality. IMPRESSION: No acute inflammatory process identified within the abdomen or pelvis within the limitat ion of a noncontrast enhanced examination.
[2018-08-19] MEDS ORDERED: SODIUM CHLORIDE 1,000 ML IV STA (04:15)
[2018-08-19] MEDS ORDERED: ZOFRAN 4 MG/2 ML IVP STA (04:17)
[2018-08-19] MEDS ORDERED: ROCEPHIN 500 MG in SODIUM CHLORIDE 50 ML IV STA (04:18)
[2018-08-19] MEDS ORDERED: ROCEPHIN ONE (04:20)
== END 2018-08-19 06:10 | disposition home or self-care (01) ==
LOC: ED 02:30
DX: N39.0 Urinary tract infection, site not specified (principal)
CPT/HCPCS: 36415; 80053; 81001; 81025; 82150; 83605; 83690; 85025; 87086; 96361; 96365; 96375; 99283